=== PATIENT | male | born 1930 | race Caucasian/White ===

== ENCOUNTER 2022-04-16 02:13 | Observation (INO) | payer OTHER ==
[~2022-04-16] VITALS: Ht 177.8 cm; Wt 79.4 kg
[2022-04-16 02:38] LABS: BASOPHILS ABSOLUTE AUTO 0.03 K/mm3 (0.00-0.23); BASOPHILS PERCENT AUTO 1 % (0-2); EOSINOPHILS ABSOLUTE AUTO 0.15 K/mm3 (0.00-0.68); EOSINOPHILS PERCENT AUTO 3 % (0-6); Hematocrit 46.6 % (37.0-53.0); Hemoglobin 15.6 g/dL (13.5-17.5); IMMATURE GRAN ABSOLUTE AUTO 0.02 K/mm3 (0.00-0.10); IMMATURE GRAN PERCENT AUTO 0 % (0-1); LYMPHOCYTES ABSOLUTE AUTO 1.77 K/mm3 (0.84-5.20); LYMPHOCYTES PERCENT AUTO 36 % (21-46); MONOCYTES ABSOLUTE AUTO 0.42 K/mm3 (0.16-1.47); MONOCYTES PERCENT AUTO 9 % (4-13); Mean Corpuscular HGB 33.8 pg (26.0-34.0); Mean Corpuscular HGB Conc 33.5 g/dL (31.5-36.5); Mean Corpuscular Volume 101 fL (80-100); Mean Platelet Volume 10.7 fL (9.1-12.4); NEUTROPHILS ABSOLUTE AUTO 2.58 K/mm3 (1.96-9.15); NEUTROPHILS PERCENT AUTO 52 % (41-73); Platelet Count 167 K/mm3 (150-400); RDW Standard Deviation 48.1 fL (35.1-46.3); Red Blood Cell Count 4.61 M/mm3 (4.30-5.90); White Blood Cell Count 4.97 K/mm3 (4.00-11.30)
[2022-04-16] MEDS ORDERED: XARELTO20 MG PO (02:38)
[2022-04-16] MEDS ORDERED: XARELTO15 MG PO (02:39)
[2022-04-16] MEDS ORDERED: OMEP20ER PO (02:39)
[2022-04-16] MEDS ORDERED: B-12500 MC2 PO (02:40)
[2022-04-16 02:52] LABS: International Normalized Ratio 1.56; Prothrombin Time Results 15.9 Sec (9.7-11.5)
[2022-04-16 02:53] LABS: Albumin, Blood 3.7 g/dL (3.4-5.0); Bilirubin, Total 0.9 mg/dL (0.1-1.0); Bun/Creatinine Ratio 17.5 (12.0-20.0); Calcium, Blood 9.1 mg/dL (8.5-10.1); Creatinine, Blood 1.14 mg/dL (0.60-1.20); Globulin, Blood 3.6 g/dL (2.2-4.0); Potassium, Blood 4.1 mmol/L (3.5-5.5); Total Protein, Blood 7.3 g/dL (6.4-8.2)
[2022-04-16] MEDS ORDERED: THERA-D2000 UNIT PO (06:05)
[2022-04-16] MEDS ORDERED: Acetaminophen650 M1 PO (06:06)
[2022-04-16] MEDS ORDERED: [UNRECOGNIZED DRUG - OTHER] PO (06:07)
[2022-04-16] MEDS ORDERED: MULTI-VITAMIN1 EAC2 PO (06:24)
[2022-04-16] MEDS ORDERED: OCULAR LUBRICANT BOTHEYES (06:25)
--- NOTE | 2022-04-16 07:47 | NUR ---
End of shift Nursing Report Mr Mccurdy was admitted this Am for rectal bleed that started late last night after using the commode. He declines pain and states medical history of Afib and taking Xalelto 20mg. He IS AOX4, on RA and transfers out of bed X1 assist.
[2022-04-16 09:27] LABS: Hematocrit 40.9 % (37.0-53.0); Hemoglobin 13.9 g/dL (13.5-17.5)
[2022-04-16 15:34] LABS: Hematocrit 40.9 % (37.0-53.0); Hemoglobin 13.8 g/dL (13.5-17.5)
--- NOTE | 2022-04-16 20:13 | NUR ---
SHIFT SUMMARY PTN PLEASANT, QUIET. PTN SCHEDULED FOR COLONOSCOPY TOMORROW, ORDERS TO BE NPO TOMORROW AT NOON. SURPREP STARTING AT 9 AM. NO UNTOWARD EVENTS THIS SHIFT. PTN USING URINAL, CLEAR YELLOW. CONTINUE TO MONITOR.
[2022-04-16 20:46] LABS: Hematocrit 42.8 % (37.0-53.0); Hemoglobin 14.6 g/dL (13.5-17.5)
--- NOTE | 2022-04-17 04:31 | NUR ---
SHIFT SUMMARY 89 YR M ADMITTED ON 04/16/21 FOR RECTAL BLEED. FULL CODE. NO ACUTE CHANGES THIS SHIFT. PT IS QUIET AND DOES NOT TALK MUCH BUT HE IS COOPERATIVE AND PLEASANT. HE HAS SLEPT FOR MOST OF THIS SHIFT AND IS SCHEDULED FOR A COLONOSCOPY IN THIS MORNING. NO KNOWN BM'S THIS SHIFT. HE USES THE BEDSIDE URINAL BUT WILL ALSO CALL FOR ASSISTANCE TO THE BATHROOM. HE WILL BE NPO STARTING AT NOON TODAY.
[2022-04-17 06:21] LABS: Bun/Creatinine Ratio 12.1 (12.0-20.0); Creatinine, Blood 1.16 mg/dL (0.60-1.20); Potassium, Blood 3.8 mmol/L (3.5-5.5)
--- NOTE | 2022-04-17 15:30 | NUR ---
04/17/22 1530 Izabela Cervantes HISTORY, CHART, MEDICATIONS AND ALLERGIES REVIEWED BEFORE START OF PROCEDURE. PATIENT CONFIRMS NPO STATUS AND AGREES WITH SCHEDULED PROCEDURE. 3-LEAD EKG REVIEWED WITH PHYSICIAN PRIOR TO START OF PROCEDURE. MONITOR INTACT WITH CONTINUOUS PULSE OXIMETRY,CAPNOGRAPHY, 3-LEAD EKG, INTERMITTENT BP. SUPPLEMENTAL O2 TO BE TITRATED THROUGHOUT PROCEDURE TO MAINTAIN O2 SATURATION ABOVE 90%. PATIENT DETERMINED TO BE ASA APPROPRIATE FOR PROPOFOL SEDATION PRIOR TO START OF PROCEDURE BY DR. GUY.
--- NOTE | 2022-04-17 17:45 | NUR ---
SHIFT SUMMARY NO ACUTE CHANGES DURING SHIFT. PT ALERT AND ORIENTED, CALLS APPROPRIATELY. PT RECEIVED PREP IN AM, NEEDS MORE PREP BEFORE COLONOSCOPY. RESCHEDULED FOR TOMORROW, PREP TO BE REDONE. NPO AFTER MIDNIGHT. PT REMAINS ON RA, INDEPENDENT IN ROOM. WILL CONTINUE TO MONITOR. CALL LIGHT WITHIN REACH.
--- NOTE | 2022-04-18 06:45 | NUR ---
END OF SHIFT REPORT Patient had a pleasant night with no acute events. Plan for Colonoscopy this AM, maintained NPO status since midnight, and will start bowel prep this AM at [address] Dwyer. Patient encouraged to turn and offload bottom through the shit. Declines any pain, no s/s of active bleeding noted.
--- NOTE | 2022-04-18 11:44 | NUR ---
TELEMETRY EVENT PT CONVERTED TO AFIB RVR AT 1108 WITH HR AT 160 FOR ABOUT 20-30 SEC AND THEN DECREASED TO 110-120'S. AT 1144, HR INCREASED TO 160-170'S AND SUSTAINED UNTIL 1154 THEN DROPPED TO 90'S. CALLED BRIAN WHO ORDERED IV LOPRESSOR TO BE GIVEN IF HR SUSTAINS ABOVE 120 FOR 5 OR MORE MINUTES. PATIENT'S CURRENT HR IS IN THE 90'S.
[2022-04-18] MEDS ORDERED: ROSU5 PO (15:44)
--- NOTE | 2022-04-18 16:24 | NUR ---
SHIFT SUMMARY A&OX4, [facility], COOPERATIVE WITH CARE. PT DENIED ANY PAIN TODAY. INDEPENDENT WITH AMBULATION TO BATHROOM. DENIES SOB, CHEST PAIN, NUMBNESS, OR TINGLING. STARTED BOWEL PREP AT 0926. PT CONVERTED TO AFIB RVR 160'S AT 1108 AND SUSTINED FOR 20-30 SECS THEN DECREASED BACK TO 90'S. THEN AT 1143 INCREASED TO 160-170'S AND SUSTAINED FOR 10MIN. DR TORRES ORDERED IV LOPRESSOR TO BE GIVEN FOR HR RATE >120 SUSTAINED FOR >5 MIN. PER [facility], PT HAS SUSTAINED AFIB IN THE 80-90'S SINCE 1400. PATIENT TAKEN FOR COLONOSCOPY AT 1640 VIA GURNEY TRANSPORT.
--- NOTE | 2022-04-18 16:40 | NUR ---
History, Chart, Medications and Allergies reviewed before start of procedure. Lungs clear T/O to Auscultation. Patient confirms NPO status and agrees with scheduled surgery. Pre-Op teaching done. Pt verbalizes understanding. LAC IV REMOVED NEW IV STARTED TO LFA.
--- NOTE | 2022-04-18 18:02 | NUR ---
04/18/22 1802 Melissa Austin HISTORY, CHART, MEDICATIONS AND ALLERGIES REVIEWED BEFORE START OF PROCEDURE. PATIENT CONFIRMS NPO STATUS AND AGREES WITH SCHEDULED PROCEDURE. 3-LEAD EKG REVIEWED WITH PHYSICIAN PRIOR TO START OF PROCEDURE. MONITOR INTACT WITH CONTINUOUS PULSE OXIMETRY,CAPNOGRAPHY, 3-LEAD EKG, INTERMITTENT BP. SUPPLEMENTAL O2 TO BE TITRATED THROUGHOUT PROCEDURE TO MAINTAIN O2 SATURATION ABOVE 90%. PATIENT DETERMINED TO BE ASA APPROPRIATE FOR PROPOFOL SEDATION PRIOR TO START OF PROCEDURE BY DR. GUY
--- NOTE | 2022-04-19 06:22 | NUR ---
Mr Mccurdy returned from GI lab @ 1930 following a colonoscopy. Diet advanced to regular diet per MD. He is AOX4, denies pain, no rectal bleed noted. Assisted in room and feed sandwiches for dinner and snacks. No events recorded over night, and took his Am prilosec. Plan to DC back home today.
--- NOTE | 2022-04-19 13:50 | NUR ---
DISCHARGE- PT WAS PICKED UP BY [facility] STAFF AT 1330 TO TAKE PT HOME. PT LEFT WITH BELONGINGS. ALL QUESTIONS AND CONCERNS ANSWERED. PAPERWORK SIGNED.
== END 2022-04-19 13:34 | disposition home or self-care (01) ==
LOC: ER 02:13 → MEDS 05:00
PROVIDERS: Internal Medicine; Internal Medicine Gastroenterology; Student in an Organized Health Care Education/Training Program; ADMIT Family Medicine
PROC: 0DBK8ZX Excision of Ascending Colon, Via Natural or Artificial Opening Endoscopic, Diagnostic (ICD-10-PCS; principal; 2022-04-18 17:00)
DX: K57.31 Diverticulosis of large intestine without perforation or abscess with bleeding (principal); D12.2 Benign neoplasm of ascending colon; K64.4 Residual hemorrhoidal skin tags; I48.91 Unspecified atrial fibrillation; K21.9 Gastro-esophageal reflux disease without esophagitis; T45.515A Adverse effect of anticoagulants, initial encounter; I10 Essential (primary) hypertension; E78.5 Hyperlipidemia, unspecified; Z85.01 Personal history of malignant neoplasm of esophagus; Z87.891 Personal history of nicotine dependence; Z79.01 Long term (current) use of anticoagulants; Z79.899 Other long term (current) drug therapy
CPT/HCPCS: 36415; 80048; 80053; 82947; 85014; 85018; 85025; 85610; 93005; 93010; 96374; 96376; 99285-25; A9270; C9113; G0378; J2704; J7120

== ENCOUNTER 2022-04-30 10:52 | Emergency (ER) | payer OTHER ==
[~2022-04-30] VITALS: Ht 177.8 cm; Wt 83.9 kg
[~2022-04-30 10:52] MED LIST: Acetaminophen650 M1 PO; B-12500 MC2 PO; MIRALAX17 GM PO; MULTI-VITAMIN1 EAC2 PO; Magic Bullet10 MG PR; OCULAR LUBRICANT BOTHEYES; OMEP20ER PO; ROSU5 PO; THERA-D2000 UNIT PO; XARELTO15 MG PO; XARELTO20 MG PO; [UNRECOGNIZED DRUG - OTHER] PO
== END 2022-04-30 11:10 | disposition home or self-care (01) ==
LOC: ER 10:52
DX: Z46.6 Encounter for fitting and adjustment of urinary device (principal); Z79.02 Long term (current) use of antithrombotics/antiplatelets; Z79.899 Other long term (current) drug therapy
CPT/HCPCS: 99283